=== PATIENT | male | born 1960 | race Caucasian/White ===

== ENCOUNTER → 2019-06-12 | Day surgery (SDC) | payer OTHER ==
[2019-06-11 10:22] VITALS: BMI 38.2
[~2019-06-12] MED LIST: DILTIAZEM 100 MG VIAL.PORT IV ONE; LACTATED RINGERS 1,000 ML IV SCH; LIDOCAINE 1% 20 ML VIAL (10MG/ML) FOR IV START INTRADERMA PRN; MIDAZOLAM 2 MG/2 ML VIAL ONE; PROPOFOL 10 MG/ML 20 ML VIAL IV ONE
[2019-06-12 08:17] VITALS: TEMP 97
--- NOTE | 2019-06-12 08:48 | P.PN ---
Progress Note - Text Progress Note Date: 06/12/19 Per the recent H&P. Patient here today for upper and lower endoscopy. Diagnosis of screening and upper abdominal pain. No changes to the recent H&P.
--- NOTE | 2019-06-12 09:19 | P.PCN ---
Date of Procedure: 06/12/19 Procedure(s) Performed: PREOPERATIVE DIAGNOSIS: Upper abdominal pain, screening POSTOPERATIVE DIAGNOSIS: Gastritis, duodenitis, distal esophagitis, diverticulosis PROCEDURE: 1. EGD with biopsy 2. Colonoscopy ANESTHESIA: MAC SURGEON: Fawad Espitia M.D. SPECIMENS: Duodenum, antrum, distal esophagus ENDOSCOPIC PROCEDURE: The patient was on the endoscopy table in the left decubitus position. The Olympus gastroscope was inserted into the oropharynx and passed under direct visualization to the region of the third portion of the duodenum. From that point the scope was slowly withdrawn inspecting all surfaces carefully. There was duodenitis present without ulcerations. Biopsies of the duodenum took place. The pylorus was widely patent. The stomach was carefully inspected. There was used gastritis without erosions or ulcerations. A biopsy of the antrum took place to rule out H. pylori. Retroflexion revealed a normal hiatus. The esophagus was then carefully examined. There was mild distal esophagitis present. A single linear erosion was present which was not circumferential. This measured 1.[address] The remainder the esophagus appear normal. The patient was kept on the endoscopy table in the left decubitus position. The Olympus colonoscope was inserted into the anus and passed under direct visualization to the cecum. The patient's colon was quite long and we were unable to advance the scope into the base of the cecum. From a distance I was able to see the majority of the base of the cecum without abnormalities noted. From that point the scope was slowly withdrawn inspecting all surfaces carefully. There were no neoplastic inflammatory or polypoid lesions throughout the cecum, ascending, transverse, descending, sigmoid and rectum. There was mild left sided diverticulosis noted. Digital rectal examination was normal. The patient was taken to the recovery room in stable condition per anesthesia guidelines. RECOMMENDATIONS: Begin antiacid therapy. Await biopsy results. Repeat colonoscopy 10 years.
[2019-06-12 09:27] VITALS: RESP 17
[2019-06-12 09:30] VITALS: BP 136/86; PULSE 83
== END ==
LOC: ORWHC2ENDO 07:55
PROVIDERS: ATTEND Surgery
DX: K29.50 Unspecified chronic gastritis without bleeding (principal); K20.9 Esophagitis, unspecified; K29.80 Duodenitis without bleeding; Z12.11 Encounter for screening for malignant neoplasm of colon; K57.30 Diverticulosis of large intestine without perforation or abscess without bleeding; J30.2 Other seasonal allergic rhinitis; E11.9 Type 2 diabetes mellitus without complications; I10 Essential (primary) hypertension; E66.01 Morbid (severe) obesity due to excess calories; Z68.38 Body mass index [BMI] 38.0-38.9, adult; Z90.49 Acquired absence of other specified parts of digestive tract; Z88.2 Allergy status to sulfonamides; Z79.899 Other long term (current) drug therapy; Z79.84 Long term (current) use of oral hypoglycemic drugs; Z79.82 Long term (current) use of aspirin; Z87.891 Personal history of nicotine dependence; Z98.890 Other specified postprocedural states; Z80.9 Family history of malignant neoplasm, unspecified
CPT/HCPCS: 88305; 43239; J2250; J2704; G0121

== ENCOUNTER → 2019-06-16 | Outpatient (CLI) | payer OTHER ==
--- NOTE | 2019-06-16 08:53 | US ---
EXAMINATION TYPE: US liver DATE OF EXAM: 06/16/2019 COMPARISON: NONE CLINICAL HISTORY: 59-year-old male R10.11 right upper quadrant pain. GB surgically absent. TECHNIQUE: Multiple sonographic images of the right upper quadrant are obtained. FINDINGS: VOICE NETWORK ADMINISTRATOR NOTES: Exam limited and difficult due to patient body habitus EXAM MEASUREMENTS: Liver Length: 17.8 cm Gallbladder: Surgically absent CBD: 0.5 cm Right Kidney: 12.2 x 5.4 x 4.9 cm Pancreas: Obscured by bowel gas Liver: Borderline enlarged, echogenic, and attenuating. The secondary limits assessment for focal les ion. Gallbladder: Surgically absent Evidence for sonographic Connor's sign: No CBD: wnl as visualized, distal portion obscured by bowel gas Right Kidney: No hydronephrosis. IMPRESSION: 1. Borderline hepatomegaly (17.8 cm) with severe hepatic steatosis. Correlate with LFTs, lipid profil e, and patient risk factors. This secondarily limits assessment for focal lesion by ultrasound. 2. Status post cholecystectomy. No biliary ductal dilatation.
== END | disposition home or self-care (01) ==
LOC: RADUSWWP 07:53
PROVIDERS: ATTEND Surgery
DX: K76.0 Fatty (change of) liver, not elsewhere classified (principal); R16.0 Hepatomegaly, not elsewhere classified; Z90.49 Acquired absence of other specified parts of digestive tract
CPT/HCPCS: 76705